=== PATIENT | female | born 1980 | race African-American/Black ===

== ENCOUNTER 2025-07-14 10:54 | Emergency (ER) | payer SELFPAY ==
[2025-07-14 11:15] VITALS: RESP 18; TEMP 98.2; BMI 36.5
[2025-07-14 12:11] LABS: MCHC 31.8 g/dl (32.2-35.5); MEAN CELL VOLUME 81.8 fl (79.4-94.8); MEAN PLT VOLUME 10.2 fl (9.4-12.3); RDW 15.1 % (12.2-17.1)
[2025-07-14 13:16] LABS: GLUCOSE,RANDOM 95.0 mg/dL (74-106); TOT PROT 6.7 g/dl (6.4-8.2)
[2025-07-14 13:18] LABS: CO2 22.0 mmol/L (21-32)
[2025-07-14 13:19] LABS: ALK PHOS 104.0 U/L (40-150)
[2025-07-14 13:22] LABS: CREATININE 0.81 mg/dL (0.55-1.3); SGOT/AST 38.0 U/L (5-34); SGPT/ALT 47.0 U/L (0-55)
[2025-07-14 14:18] LABS: HIV INTERPRETATION NEGATIVE (NEGATIVE)
[2025-07-14 14:19] LABS: HCV DIAGNOSTIC IN-HOUSE W/RFLX NON-REACTIVE (NONREACTIVE)
[2025-07-14 15:26] VITALS: BP 123/77; PULSE 79
== END 2025-07-14 17:26 | disposition home or self-care (01) ==
LOC: JER 10:54
DX: M54.50 Low back pain, unspecified (principal); R20.2 Paresthesia of skin; R60.0 Localized edema
CPT/HCPCS: 36415; 72131-TC; 80053; 84703; 85025; 86803; 87389; 93970-TC; 99284-25